=== PATIENT | female | born 1995 | race Caucasian/White ===

== ENCOUNTER 2022-12-30 01:03 | Emergency (ER) | payer OTHER ==
[~2022-12-30] VITALS: Ht 162.6 cm; Wt 96.1 kg
[2022-12-30] MEDS ORDERED: BUPROPION XL300 MG PO (01:16)
[2022-12-30] MEDS ORDERED: SERTRALINE HCL100 MG PO (01:16)
[2022-12-30 01:39] LABS: BASOPHILS 0.6 % (0-2); EOSINOPHILS 0.6 % (0-6); HEMATOCRIT 38.8 % (35.0-50.0); HEMOGLOBIN 13.2 g/dL (12.0-18.0); LYMPHOCYTES 21.3 % (24-44); MCH 28.7 (27-36); MCHC 34.1 g/dl (30-36); MONOCYTES 4.3 % (0-12); NEUTROPHILS 73.2 % (39-80); PLATELET COUNT 314 K/uL (140-440); RBC 4.62 M/ul (4.3-5.7); RDW 13.4 (10.5-15.0)
[2022-12-30 01:53] LABS: ALBUMIN 4.1 g/dL (3.4-5.0); ALBUMIN/GLOBULIN RATIO 1.21 (1.1-2.4); ANION GAP 15.7 (7-21); BILIRUBIN, TOTAL 0.6 ng/dL (0.2-1.0); BUN/CREATININE RATIO 22.53 (6.0-28.6); CALCIUM 9.1 mg/dL (8.5-10.1); CREATININE, SERUM 0.71 mg/dL (0.55-1.02); POTASSIUM 3.7 mmol/L (3.5-5.1); PROTEIN, TOTAL 7.5 g/dL (6.4-8.2)
[2022-12-30 03:46] VITALS: BP 112/76
[2022-12-30] MEDS ORDERED: ONDANSETRON ODT8 MG PO (11:32)
[2022-12-30] MEDS ORDERED: HYDROCODON-ACE1 EA10 PO (11:32)
[2022-12-30] MEDS ORDERED: CARAFATE1 GM PO (11:32)
== END 2022-12-30 03:46 | disposition home or self-care (01) ==
LOC: ED 01:03
PROVIDERS: Internal Medicine
DX: K80.20 Calculus of gallbladder without cholecystitis without obstruction (principal); J45.909 Unspecified asthma, uncomplicated; Z79.899 Other long term (current) drug therapy
CPT/HCPCS: 36415; 76705; 80053; 83690; 84703; 85025; 96374; 96375; 99284-25; J1885

== ENCOUNTER 2022-12-30 09:26 | Emergency (ER) | payer OTHER ==
[~2022-12-30 09:26] MED LIST: BUPROPION XL300 MG PO; SERTRALINE HCL100 MG PO
--- OUTSIDE RECORDS SUMMARY | 2022-12-30 09:33 | XMS ---
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 EJames VISIT COUNT (12 MO.) [address] [place] [address] TOTAL 2 NOTE: Visits indicate total known visits. ED/UCC VISIT TRACKING (12 MO.) 12/30/2022 09:27 [facility] [place] TYPE: Emergency COMPLAINT: - ABD PAIN, N/V 12/30/2022 01:03 [facility] [place] TYPE: Emergency COMPLAINT: - ABD PAIN INPATIENT VISIT TRACKING (12 MO.) 05/23/2022 06:51 [place] TYPE: Mother Baby Unit DIAGNOSES: - Encounter for full-term uncomplicated delivery - Contractions [email or web address]
[2022-12-30 10:06] LABS: BILIRUBIN, URINE POSITIVE (negative); BLOOD/HGB, URINE NEGATIVE (Negative); KETONE, URINE NEGATIVE (Negative); LEUK ESTERASE, URINE NEGATIVE (negative); NITRITE, URINE NEGATIVE (negative)
[2022-12-30] MEDS ORDERED: ONDANSETRON ODT8 MG PO (11:32)
[2022-12-30] MEDS ORDERED: CARAFATE1 GM PO (11:32)
[2022-12-30] MEDS ORDERED: HYDROCODON-ACE1 EA10 PO (11:32)
[2022-12-30 11:41] VITALS: BP 106/66
== END 2022-12-30 11:42 | disposition home or self-care (01) ==
LOC: ED 09:26
PROVIDERS: Family Medicine
DX: R10.13 Epigastric pain (principal)
CPT/HCPCS: 74177; 81003; 96375; 99284-25; C9113; J2270; J2405; J7030; Q9967

== ENCOUNTER 2023-02-03 05:45 | Day surgery (SDC) | payer OTHER ==
[2023-01-30 13:07] VITALS: BP 111/79
[~2023-02-03] VITALS: Ht 162.6 cm; Wt 94.5 kg
[~2023-02-03 05:45] MED LIST changes: +CAMILA0.35 MG PO; +CARAFATE1 GM PO; +HYDROCODON-ACE1 EA10 PO; +ONDANSETRON ODT8 MG PO; +VITAMIN C250 MG PO
[2023-02-03 06:07] VITALS: BP 120/71
--- NOTE | 2023-02-03 07:20 | NUR ---
emergency detail driver in to talk with pt scds on. denies need to void.
--- NOTE | 2023-02-03 07:43 | NUR ---
DS ROUNDS. 15 MINUTES. PT GONE FOR PROCEDURE. CONNECTED WITH TRAFFIC ANALYST IN ROOM. PROVIDED HOSPITALITY. GAVE PAGER #3. PROVIDED SILENT PRAYER.
--- NOTE | 2023-02-03 09:20 | NUR ---
02/03/23 0920 Brittany Shah 0901- PT ARRIVES TO PACU, NON REACTIVE TO STIMULUS, OPA IN PLACE, SEMI CÁRDENAS POSITION. PT MAINTAINS OWN AIRWAY WITH JUST OPA, O2 AT 6L PER MASK. LR INFUSING TO RH IV, ALL MONITORS APPLIED. ABD SOFT, NON DISTENDED. DRESSINGS IN PLACE, CDI. WILL CONTINUE TO MONITOR. 0908- ICE PACKS PLACED TO SURGICAL SITES. 0915- PT REACTIVE TO TACTILE STIMULUS, STARTLES AWAKE. REORIENTED TO TIME AND PLACE. PT FOLLOWS COMMANDS TO OPEN MOUTH AND REMOVE OPA. MOVED TO ROOM AIR AT THIS TIME. PT DENIES PAIN AND NAUSEA. WILL CONTINUE TO MONITOR. PT BACK TO RESTING, BREATHING EVEN AND NON LABORED.
[2023-02-03 10:07] VITALS: BP 106/65
--- NOTE | 2023-02-03 10:18 | NUR ---
REQUESTED PAIN PILL AND GIVEN AFTER EATING CRACKERS AND WATER.
--- NOTE | 2023-02-03 11:01 | OR ---
[facility] [address], [place] [address] Signed DATE OF OPERATION: 02/03/2023 SURGEON: Camron Ng MD PREOPERATIVE DIAGNOSES: 1. Chronic cholelithiasis with cholecystitis. 2. Biliary colic. POSTOPERATIVE DIAGNOSES: 1. Chronic cholelithiasis with cholecystitis. 2. Biliary colic. 3. Cholesterolosis. 4. Mild fatty liver. PROCEDURE: Laparoscopic cholecystectomy with intraoperative cholangiogram. ESTIMATED BLOOD LOSS: None. FINDINGS: Heike indeed had multiple small 3 to 4 mm stones that were traveling down the neck of the gallbladder and spurting into the beginning of the cystic duct. They were easily evacuated. Intraoperative cholangiogram showed the cystic duct and biliary tree to be free of any filling defects. The contrast flowed nicely into the duodenum and we could immediately see she had some cholesterolosis of the gallbladder along with some mild fatty liver. Incidentally, she has a fairly large spleen that sticks up above her omentum. We went ahead and took a picture of that for photodocumentation. INDICATIONS: Heike is a 28-year-old obese female, asked to see me for her symptomatic gallstones. 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 Her baby is a little over six months at this point. She has now discontinued nursing. She has been in the emergency room a couple of times with epigastric and right upper quadrant abdominal pain. She has had nausea, but no vomiting. The labs have been unremarkable. Ultrasound showed multiple small stones, but no gallbladder wall thickening. The common bile duct was unremarkable at 5 mm. Her Boyd sign was negative. There was no pericholecystic fluid. She had responded to IV fluids and pain control. 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 She has continued to have several mild attacks. She told me her stays at home and helps take care of their son. She Electronically Signed By: CAMRON GN MD 02/03/23 1101 PATIENT NAME: HEIKE CLARK OPERATIVE REPORT DATE OF : [birth year] REPORT #: [id number] PHYSICIAN: CAMRON NG MD PCP: LEORA GARZON REPORT IS CONFIDENTIAL AND NOT TO BE RELEASED WITHOUT AUTHORIZATION [facility] [address] [place] [id number] Signed obviously is the main financial person for the family. She told me she wanted to proceed with removing the gallbladder. In the office, I gave her a brochure on the gallbladder. We looked at the location and function of the gallbladder. We discussed laparoscopic versus open cholecystectomy. She understands there is risk including, but not limited to bleeding, infection, scarring, change in contour of the skin, damage to bowel, damage to main bile duct, incisional hernias and other unforeseen comorbidities. She also understands the possible need for ERCP depending on her intraoperative cholangiogram. She understands that is not available at our [facility]. We also reviewed the expected intraop and postop course. She expressed understanding and wished to proceed. DESCRIPTION OF PROCEDURE: I met with Heike and her this morning in our preop area. After answering the questions, we took Heike into our operating room and placed her in the supine position. She was placed under general endotracheal tube anesthesia. She was given preoperative antibiotics along with subcutaneous heparin. SCDs were utilized. She was then prepped and draped in the usual sterile fashion. After this, all trocars were placed in their usual positions under direct visualization of the camera without difficulty. We can see she has some mild fatty liver. When we elevated the gallbladder, we could immediately see some cholesterolosis in the wall of the gallbladder. We could also see some of the small stones in the neck of her gallbladder. Interestingly, her spleen is a little bit large and it sticks up above the omentum. We went ahead and took a picture of that for photodocumentation. After this, we dissected out the triangle of Calot. We placed a clip on the cystic artery and it was divided. We could easily see the lymph node of Calot. We made our dissection down the neck of the gallbladder just joining the cystic duct. We made a small reynold and we milked out four small stones from the very distal portion of her gallbladder before it entered into the cystic duct. After that, there were no additional stones in that area. We then inserted the intraoperative cholangiocatheter and we found that the cystic duct and her common bile duct were unremarkable for any filling defects. The contrast flowed very readily into her duodenum. We then secured the cystic duct stump with a PDS Endoloop. Two clips were placed across the cystic duct stump to misty its location. After this, the gallbladder was carefully removed from the gallbladder fossa with the help of cautery and placed into an EndoCatch bag. The right upper quadrant was irrigated and suctioned out until clear. We then used our laparoscopic suturing device to pass 0-Vicryl suture on either side of the fascia of the subxiphoid trocar site. This was tied down to close this fascia primarily. The gas was then allowed to escape and all the remaining trocars were removed along with the gallbladder. The gallbladder was passed off the table to our circulating nurse for photodocumentation. We then closed the fascia of the supraumbilical trocar site with interrupted [id number] and simple 0-Vicryl sutures. Local anesthetic was injected into all trocar sites. Each trocar site was irrigated and suctioned out until clear. We used one-half inch Steri-Strips Electronically Signed By: CAMRON NG MD 02/03/23 1101 PATIENT NAME: HEIKE CLARK OPERATIVE REPORT DATE OF : [birth year] REPORT #: [id number] PHYSICIAN: CAMRON NG MD PCP: LEORA GARZON REPORT IS CONFIDENTIAL AND NOT TO BE RELEASED WITHOUT AUTHORIZATION [facility] [address], [place] [address] Signed and Mastisol to bring the skin edges together on all her trocar sites. Dry gauze and tape was then applied to all incisions. Heike was then awakened from her anesthesia, extubated in the OR, and taken to recovery room in stable condition. . Camron Ng MD ALB/MODL /[id number] cc: SARAH Salmeron MD Copies: CAMRON NG MD ~ Electronically Signed By: CAMRON NG MD 02/03/23 1101 PATIENT NAME: HEIKE CLARK OPERATIVE REPORT DATE OF : [birth year] REPORT #: [id number] PHYSICIAN: CAMRON NG MD PCP: LEORA GARZON REPORT IS CONFIDENTIAL AND NOT TO BE RELEASED WITHOUT AUTHORIZATION
[2023-02-03 11:22] VITALS: BP 114/66
--- NOTE | 2023-02-03 11:45 | NUR ---
ENCOURAGED TO SIT UP, DECLINES TO AMB. SAT ON BS AND SAYS THINGS ARE A LITTLE FUSSY. TOOK DEEP BREATHS AND THEN LAYED BACK DOWN.
[2023-02-03 12:23] VITALS: BP 110/77
--- NOTE | 2023-02-03 12:31 | NUR ---
AMB IN HALLWAY. SLOW BUT DID WELL. STATES SHE WANTS TO TRY GETTING DRESSED. KARMA HELPING HER.
--- NOTE | 2023-02-03 14:14 | NUR ---
1300 VOIDS QS PRIOR TO DC.
== END 2023-02-03 13:10 | disposition home or self-care (01) ==
LOC: DS 05:45
PROVIDERS: ATTEND Colon & Rectal Surgery
PROC: BF121ZZ Fluoroscopy of Gallbladder using Low Osmolar Contrast (ICD-10-PCS; 2023-02-03)
PROC: 0FT44ZZ Resection of Gallbladder, Percutaneous Endoscopic Approach (ICD-10-PCS; principal; 2023-02-03 07:30)
DX: K80.64 Calculus of gallbladder and bile duct with chronic cholecystitis without obstruction (principal); K76.0 Fatty (change of) liver, not elsewhere classified; F41.8 Other specified anxiety disorders; J45.909 Unspecified asthma, uncomplicated; Z79.899 Other long term (current) drug therapy
CPT/HCPCS: 00790; 74300; J0131; J0330; J0690; J1100; J1644; J1885; J2001; J2250; J2405; J2704; J3010; J3490; J7121; Q9967

== ENCOUNTER 2024-05-18 14:17 | Emergency (ER) | payer OTHER ==
[~2024-05-18] VITALS: Ht 162.6 cm; Wt 100.0 kg
[2024-05-18] MEDS ORDERED: OMEPRAZOLE20 MG PO (14:25)
[2024-05-18] MEDS ORDERED: ondansetron HCL 4 MG/2 ML VIAL IV ONE (14:45)
[2024-05-18 14:46] LABS: BASOPHILS 0.2 % (0-2); EOSINOPHILS 0.1 % (0-6); HEMATOCRIT 41.5 % (35.0-50.0); HEMOGLOBIN 14.4 g/dL (12.0-18.0); LYMPHOCYTES 4.3 % (24-44); MCH 28.5 (27-36); MCHC 34.7 g/dl (30-36); MCV 82.2 fl (81-99); MONOCYTES 2.8 % (0-12); NEUTROPHILS 92.6 % (39-80); PLATELET COUNT 328 K/uL (140-440); RBC 5.05 M/ul (4.3-5.7); RDW 14.1 (10.5-15.0)
[2024-05-18 15:00] LABS: ALBUMIN 4.7 g/dL (3.4-5.0); ALBUMIN/GLOBULIN RATIO 1.38 (1.1-2.4); ANION GAP 17.4 (7-21); BUN/CREATININE RATIO 25.97 (6.0-28.6); CREATININE, SERUM 0.77 mg/dL (0.55-1.02); POTASSIUM 3.4 mmol/L (3.5-5.1); PROTEIN, TOTAL 8.1 g/dL (6.4-8.2)
[2024-05-18 16:33] LABS: BILIRUBIN, URINE NEGATIVE (negative); BLOOD/HGB, URINE NEGATIVE (Negative); KETONE, URINE NEGATIVE (Negative); LEUK ESTERASE, URINE NEGATIVE (negative); NITRITE, URINE NEGATIVE (negative)
[2024-05-18 17:27] VITALS: BP 104/71
[2024-05-18] MEDS ORDERED: ONDANSETRON 4 MG TAB ODT SL ONE (17:30)
== END 2024-05-18 17:27 | disposition home or self-care (01) ==
LOC: ED 14:17
PROVIDERS: Emergency Medicine
DX: R10.31 Right lower quadrant pain (principal)
CPT/HCPCS: 36415; 74177; 80053; 81003; 83690; 84703; 85025; 99284-25; A9270; J2405; Q9967

== ENCOUNTER 2024-07-13 04:08 | Emergency (ER) | payer OTHER ==
[~2024-07-13] VITALS: Ht 162.6 cm; Wt 100.0 kg
[~2024-07-13 04:08] MED LIST changes: +OMEPRAZOLE20 MG PO
[2024-07-13] MEDS ORDERED: MECLIZINE HCL25 MG PO (04:20)
[2024-07-13] MEDS ORDERED: MECLIZINE HCL 25 MG TAB PO ONE (04:30)
[2024-07-13 04:41] LABS: BASOPHILS 0.4 % (0.1-1.2); EOSINOPHILS 1.6 % (0.7-5.8); HEMATOCRIT 39.5 % (34.1-44.9); HEMOGLOBIN 13.1 g/dL (11.2-15.7); LYMPHOCYTES 31.1 % (19.3-51.7); MCH 27.9 PG (25.6-32.2); MCHC 33.2 g/dL (32.2-35.5); MONOCYTES 4.5 % (4.7-12.5); NEUTROPHILS 62.1 % (34.0-71.1); PLATELET COUNT 289 K/uL (182-369)
[2024-07-13 04:53] LABS: ALBUMIN 4.2 g/dL (3.4-5.0); ALBUMIN/GLOBULIN RATIO 1.27 (1.1-2.4); ANION GAP 12.8 (7-21); BILIRUBIN, TOTAL 0.3 mg/dL (0.2-1.0); BUN/CREATININE RATIO 27.77 (6.0-28.6); CREATININE, SERUM 0.72 mg/dL (0.55-1.02); MAGNESIUM 1.9 mg/dL (1.8-2.4); POTASSIUM 3.8 mmol/L (3.5-5.1); PROTEIN, TOTAL 7.5 g/dL (6.4-8.2)
[2024-07-13 05:12] VITALS: BP 107/76
== END 2024-07-13 05:05 | disposition home or self-care (01) ==
LOC: ED 04:08
PROVIDERS: Family Medicine
DX: R42 Dizziness and giddiness (principal); R20.2 Paresthesia of skin; J45.909 Unspecified asthma, uncomplicated; Z79.899 Other long term (current) drug therapy
CPT/HCPCS: 36415; 80053; 83735; 85025; 99284; A9270